=== PATIENT | female | born 1955 | race African-American/Black ===

== ENCOUNTER 2020-05-22 14:08 | Outpatient (REF) | payer MEDICARE, OTHER, SELFPAY | END 2020-05-22 14:09 | disposition home or self-care (01) | LOC: HO.LNP 14:08 | PROVIDERS: Visit Provider Hospitalist | DX: R31.9 Hematuria, unspecified (principal) | CPT/HCPCS: 87086 ==

== ENCOUNTER 2020-06-02 10:39 | Outpatient (REF) | payer MEDICARE, OTHER, SELFPAY ==
--- NOTE | 2020-06-02 10:46 | US_ITS ---
EXAMINATION: US RETROPERITONEAL COMPLETE (RENAL) CLINICAL INFORMATION: Gross hematuria. COMPARISON: None TECHNIQUE: Real-time imaging of the kidneys and bladder. FINDINGS: RIGHT KIDNEY: 9.4 x 5.6 x 5.5 cm (SAG x AP x TRV). The kidney is normal in size, contour, and echogenicity. Renal cortical thickness is normal. No calculi or focal parenchymal lesions. No hydronephrosis. LEFT KIDNEY: 8.7 x 3.7 x 4.5 cm (SAG x AP x TRV). The kidney is normal in size, contour, and echogenicity. Renal cortical thickness is normal. No calculi or focal parenchymal lesions. No hydronephrosis. BLADDER: Well distended and normal. Bilateral ureteral jets are demonstrated. Prevoid bladder volume is 200 mL. Postvoid bladder volume is 9.9 mL. US/US renal BI IMPRESSION: Unremarkable renal ultrasound. Tiny postvoid residual bladder volume.
--- NOTE | 2020-06-02 10:46 | US_ITS ---
EXAMINATION: US RETROPERITONEAL COMPLETE (RENAL) CLINICAL INFORMATION: Gross hematuria. COMPARISON: None TECHNIQUE: Real-time imaging of the kidneys and bladder. FINDINGS: RIGHT KIDNEY: 9.4 x 5.6 x 5.5 cm (SAG x AP x TRV). The kidney is normal in size, contour, and echogenicity. Renal cortical thickness is normal. No calculi or focal parenchymal lesions. No hydronephrosis. LEFT KIDNEY: 8.7 x 3.7 x 4.5 cm (SAG x AP x TRV). The kidney is normal in size, contour, and echogenicity. Renal cortical thickness is normal. No calculi or focal parenchymal lesions. No hydronephrosis. BLADDER: Well distended and normal. Bilateral ureteral jets are demonstrated. Prevoid bladder volume is 200 mL. Postvoid bladder volume is 9.9 mL. US/US bladder IMPRESSION: Unremarkable renal ultrasound. Tiny postvoid residual bladder volume.
== END 2020-06-02 10:40 | disposition home or self-care (01) ==
LOC: HO.HMGCX 10:39
PROVIDERS: PCP Internal Medicine; Referring Provider Hospitalist; Visit Provider Internal Medicine
DX: R31.0 Gross hematuria (principal)
CPT/HCPCS: 76770; 76775; 76857

== ENCOUNTER 2020-06-22 10:30 | Outpatient (REF) | payer MEDICARE, OTHER, SELFPAY ==
--- NOTE | 2020-06-22 | US_ITS ---
EXAMINATION: ULTRASOUND OF THE PELVIS CLINICAL INFORMATION: Pelvic pain. Gross hematuria.. COMPARISON: None. TECHNIQUE: Transabdominal and transvaginal pelvic ultrasound. A transvaginal study was performed in addition to the transabdominal study which did not yield an adequate examination of the uterus and ovaries due to superimposed distended gas-filled loops of bowel. FINDINGS: The uterus is normal in size and appearance, measuring 6.6 x 2.4 x 3.5 cm longitudinally, anteroposteriorly and transversely. The endometrial stripe thickness is normal, measuring 0.1 cm in thickness. There is a calcification at the posterior uterine body measuring 0.9 x 0.8 x 1.3 cm, likely a calcified fibroid. There is a separate hypoechoic myometrial fibroid at the anterior uterine body measuring 0.8 x 0.6 x 0.6 cm. The right ovary is not seen. Within the left adnexa there is a septated lobulated cyst measuring 2.3 x 1.7 x 1.7 cm. This is likely associated with the left ovary. There is no abnormal Doppler vascularity. No pelvic free fluid. US/US transvaginal IMPRESSION: 1. Small uterine fibroids. No endometrial thickening. 2. Septated left adnexal cyst measuring up to 2.3 cm.
--- NOTE | 2020-06-22 10:34 | US_ITS ---
EXAMINATION: ULTRASOUND OF THE PELVIS CLINICAL INFORMATION: Pelvic pain. Gross hematuria.. COMPARISON: None. TECHNIQUE: Transabdominal and transvaginal pelvic ultrasound. A transvaginal study was performed in addition to the transabdominal study which did not yield an adequate examination of the uterus and ovaries due to superimposed distended gas-filled loops of bowel. FINDINGS: The uterus is normal in size and appearance, measuring 6.6 x 2.4 x 3.5 cm longitudinally, anteroposteriorly and transversely. The endometrial stripe thickness is normal, measuring 0.1 cm in thickness. There is a calcification at the posterior uterine body measuring 0.9 x 0.8 x 1.3 cm, likely a calcified fibroid. There is a separate hypoechoic myometrial fibroid at the anterior uterine body measuring 0.8 x 0.6 x 0.6 cm. The right ovary is not seen. Within the left adnexa there is a septated lobulated cyst measuring 2.3 x 1.7 x 1.7 cm. This is likely associated with the left ovary. There is no abnormal Doppler vascularity. No pelvic free fluid. US/US pelvic complete IMPRESSION: 1. Small uterine fibroids. No endometrial thickening. 2. Septated left adnexal cyst measuring up to 2.3 cm.
== END 2020-06-22 10:31 | disposition home or self-care (01) ==
LOC: HO.HMGCX 10:30
PROVIDERS: PCP Internal Medicine; Visit Provider Internal Medicine
DX: R10.2 Pelvic and perineal pain (principal); R31.0 Gross hematuria
CPT/HCPCS: 76830; 76856

== ENCOUNTER 2020-08-28 10:34 | Outpatient (REF) | payer MEDICARE, OTHER, SELFPAY ==
[2020-08-28 14:03] LABS: Hematocrit 42.2 % (37-47); Hemoglobin 13.5 g/dl (12.0-16.0); Mean Corpuscular Hemoglobin 30.7 pg (27.0-33.0); Mean Corpuscular Volume 95.9 fL (80-98); Mean Platelet Volume 9.9 fL (9.4-12.3); Platelet Count 309 X10*3/uL (160-400); Red Cell Distribution Width 13.7 % (11.0-16.0); White Blood Count 3.8 X10*3/uL (4.8-10.8)
[2020-08-28 14:14] LABS: Glucose Urine UA NEG (NEG); Leukocyte Esterase Urine NEG (NEG); Nitrite Urine NEG (NEG); PH 5.5 (5.0-8.0); Specific Gravity - Urine 1.025 (1.005-1.025); Urine Blood TRACE (NEG); Urine Ketones NEG (NEG); Urine Protein NEG (NEG-TRACE)
[2020-08-28 14:21] LABS: Appearance Urine CLEAR; Color Urine YELLOW
[2020-08-28 14:30] LABS: RBC Urine 0-2 /HPF (0); Squamous Epithelial Cell Urine TRACE /LPF; WBC Urine 0-2 /HPF (0-4)
[2020-08-28 14:42] LABS: Alanine Aminotransferase 19 U/L (0-31); Albumin Level 4.5 g/dL (3.5-5.0); Alkaline Phosphatase 73 U/L (39-117); Anion Gap 15 (12-20); Aspartate Amino Transferase 24 U/L (5-31); Bilirubin Total 1.4 mg/dL (0.0-1.0); Blood Urea Nitrogen 13 mg/dL (9-16); Carbon Dioxide 26 mmol/L (22-29); Chloride 104 mmol/L (96-108); Cholesterol 208 mg/dL; Estimated Glomerular Filt Rate > 60; Glucose Fasting 76 mg/dL (60-99); HDL Cholesterol 73 mg/dL; LDL Cholesterol Calculated 121 mg/dl; Potassium 4.6 mmol/l (3.3-5.1); Sodium 140 mmol/L (135-145); Total Protein 7.3 g/dL (6.5-8.0); Triglycerides 74 mg/dL
[2020-08-28 14:47] LABS: TSH reflex Free T4 0.58 mIU/mL (0.32-4.0)
== END 2020-08-28 10:35 | disposition home or self-care (01) ==
LOC: HO.HMGCLDS 10:34
PROVIDERS: PCP Internal Medicine; Visit Provider Internal Medicine
DX: Z00.00 Encounter for general adult medical examination without abnormal findings (principal); R31.9 Hematuria, unspecified
CPT/HCPCS: 36415; 80053; 80061; 81001; 81003; 84443; 85027; 88142

== ENCOUNTER 2020-08-28 11:27 | Outpatient (REF) | payer MEDICARE, OTHER, SELFPAY | END 2020-08-28 11:28 | disposition home or self-care (01) | LOC: HO.LAB 11:27 | PROVIDERS: Visit Provider Internal Medicine | DX: Z13.89 Encounter for screening for other disorder (principal) | CPT/HCPCS: 88142 ==

== ENCOUNTER 2022-04-11 10:42 | Outpatient (REF) | payer MEDICARE, OTHER, SELFPAY ==
[2022-04-11 14:02] LABS: Appearance Urine Clear; Color Urine Yellow; Glucose Urine UA Negative (Negative); Leukocyte Esterase Urine Negative (Negative); Nitrite Urine Negative (Negative); Urine Blood Negative (Negative); Urine Ketones Negative (Negative); Urine Protein Negative (Neg-Trace)
[2022-04-11 14:24] LABS: MANUAL DIFF FLAG NO
[2022-04-11 14:25] LABS: Bacteria Urine None Seen (None Seen); Hyaline Casts Urine 0-2 /LPF (0-2); RBC Urine 0-2 /HPF (0-2); Squamous Epithelial Cell Urine 0-2 /HPF (0-2); WBC Urine 0-5 /HPF (0-5)
[2022-04-11 14:46] LABS: Basophils Percent Auto 1.1 % (0-2); Eosinophils Absolute Auto 0.4 X10*3/uL (0.0-0.4); Eosinophils Percent Auto 10.2 % (0-4); Hematocrit 42.2 % (37.0-47.0); Hemoglobin 13.8 g/dl (12.0-16.0); Lymphocytes Absolute Auto 1.8 X10*3/uL (1.2-4.9); Lymphocytes Percent Auto 49.1 % (20-40); Mean Corpuscular HGB Conc 32.7 g/dl (31.0-35.0); Mean Corpuscular Hemoglobin 31.1 pg (27.0-33.0); Monocytes Absolute Auto 0.4 X10*3/uL (0.1-1.2); Monocytes Percent Auto 11.5 % (2-11); Neutrophils Absolute Auto 1.1 x10*3/uL (2.0-8.3); Neutrophils Percent Auto 28.1 % (45-73); Platelet Count 345 X10*3/uL (160-400); Red Blood Count 4.44 X10*6/uL (4.20-5.50); Red Cell Distribution Width 13.5 % (11.0-16.0); White Blood Count 3.7 X10*3/uL (4.8-10.8)
[2022-04-11 14:51] LABS: Alanine Aminotransferase 17 U/L (0-31); Albumin Level 4.5 g/dL (3.5-5.0); Alkaline Phosphatase 68 U/L (39-117); Anion Gap 14 (12-20); Aspartate Amino Transferase 23 U/L (5-31); Bilirubin Total 1.3 mg/dL (0.0-1.0); Blood Urea Nitrogen 10 mg/dL (9-16); Calcium 9.5 mg/dL (8.4-10.2); Carbon Dioxide 26 mmol/L (22-29); Chloride 104 mmol/L (96-108); Cholesterol 217 mg/dL; Estimated Glomerular Filt Rate 59; Glucose Fasting 88 mg/dL (60-99); HDL Cholesterol 70 mg/dL; LDL Cholesterol Calculated 131 mg/dl; Potassium 4.6 mmol/L (3.3-5.1); Sodium 139 mmol/L (135-145); Total Protein 7.6 g/dL (6.5-8.0); Triglycerides 83 mg/dL
[2022-04-11 15:21] LABS: TSH reflex Free T4 0.93 uIU/mL (0.32-4.0)
[2022-04-11 15:52] LABS: Folate 14.3 ng/mL (> or = 4.0); Vitamin B12 883 pg/mL (200-900)
[2022-04-11 15:54] LABS: Vitamin D 25-OH Total 19.5 ng/mL (>30)
== END 2022-04-11 10:43 | disposition home or self-care (01) ==
LOC: HO.HMGCLDS 10:42
PROVIDERS: PCP Internal Medicine; Visit Provider Internal Medicine
DX: Z00.00 Encounter for general adult medical examination without abnormal findings (principal); E55.9 Vitamin D deficiency, unspecified
CPT/HCPCS: 36415; 80053; 80061; 81001; 82306; 82607; 82746; 84443; 85025; 87624; 88142

== ENCOUNTER 2022-04-11 16:05 | Outpatient (REF) | payer MEDICARE, OTHER, SELFPAY ==
[2022-04-19 00:57] LABS: HPV mRNA E6/E7 Detected (Not Detected)
== END 2022-04-11 16:06 | disposition home or self-care (01) ==
LOC: HO.LNP 16:05
PROVIDERS: Visit Provider Internal Medicine
DX: Z01.419 Encounter for gynecological examination (general) (routine) without abnormal findings (principal)
CPT/HCPCS: 87624; 88142

== ENCOUNTER 2022-06-18 15:29 | Outpatient (REF) | payer MEDICARE, OTHER, SELFPAY | END 2022-06-18 15:30 | disposition home or self-care (01) | LOC: HO.SH 15:29 | PROVIDERS: Visit Provider Internal Medicine | DX: Z01.118 Encounter for examination of ears and hearing with other abnormal findings (principal); H90.3 Sensorineural hearing loss, bilateral; H93.13 Tinnitus, bilateral | CPT/HCPCS: 92557; 92567; 92588 ==

== ENCOUNTER 2023-05-05 08:53 | Outpatient (AMB) | payer MEDICARE, OTHER, SELFPAY ==
[2023-05-05 09:02] VITALS: BP 106/66; PULSE 73; O2SAT 97; BMI 23.3
--- NOTE | 2023-05-05 09:02 | A.OFFPC_ITS ---
Vital Signs 05/05/23 09:02 Height 5 ft 7.5 in Weight 151 lb BMI 23.3 BP 106/66 Blood Pressure Location Lt brachial Position Sitting Pulse 73 Pulse Source Pulse Oximeter Pulse Oximetry (%) 97 Oxygen Delivery Method Room Air Intake Visit Reasons: PE Intake Note: Pt is here today for PE. Pt is due for pap. Allergies iodine Allergy (Unknown, Verified 05/05/23 09:08) unknown penicillin V Allergy (Unknown, Verified 05/05/23 09:08) cant breath soy Allergy (Unknown, Verified 05/05/23 09:08) scratchy throat eye swelling Sulfa (Sulfonamide Antibiotics) Allergy (Unknown, Verified 05/05/23 09:08) cant breath Medication List - Last Reconciled 05/05/23 by Yessy Mas MD albuterol sulfate 90 mcg/actuation (ProAir HFA) 2 puffs inhalation Q6H PRN cholecalciferol (vitamin D3) 50 mcg PO DAILY hydrocortisone 2.5% 1 appl topical BID PRN Tobacco use date assessed: 05/05/23 Fall risk assessment: No Falls in past year Last assessed Fall Risk: 05/05/23 Dental Screening Dental Screen Date: 05/05/23 Did you have a dental visit in the last 12 months?: Yes Did you have a dental problem in the last 6 months where you did not have access to dental care?: No Was dental information given to patient?: Patient has dentist HPI PE HPI Details Patient presents for physical. She has been under lot of stress related to her mother living with her. She has been seeing counselor for panic attacks. [facility] Medical History Annual physical exam Foot pain, right Hearing loss Panic attack Urinary incontinence Vasovagal episode Surgical History H/O colonoscopy No pertinent past surgical history Family History (Updated 05/05/23 @ 09:12 by ZAY Francis) Mother Hypertension Father Lung cancer Maternal Grandmother Colon cancer Social History Housing: House Alcohol intake: current Alcohol intake frequency: a few times a week Patient Tobacco Use Status: Never used Tobacco e-Cigarette/Vaping Use: Never Used Current occupational status: employed and retired Cognitive needs: No Hearing needs: No Vision needs: Yes Questionnaire PHQ-9 Over the last 2 weeks, how often have you been bothered by any of the following problems? 1. Little interest or pleasure in doing things: not at all 2. Feeling down, depressed, or hopeless: not at all 3. Trouble falling or staying asleep, or sleeping too much: several days 4. Feeling tired or having little energy: several days 5. Poor appetite or overeating: not at all 6. Feeling bad about yourself - or that you are a failure or have let yourself or your family down: not at all 7. Trouble concentrating on things, such as reading the newspaper or watching television: not at all 8. Moving or speaking so slowly that other people could have noticed. Or the opposite - being so fidgety or restless that you have been moving around a lot more than usual: not at all 9. Thoughts that you would be better off or of hurting yourself in some way: not at all Total score: 2 Depression Screening Interpretation: Negative Source: Developed by Drs. Beto Urrutia, Aiyana Quiroz, Donnie Echeverria and colleagues, with an educational liborio from [email or web address]. Thrive Questionnaire Date Thrive assessed: 05/05/23 I am a: Patient What is your living situation today?: I have a steady place to live Within the past 12 months, did the food you bought not last and you didn't have the money to get more?: Never true Within the past 12 months, did you worry whether your food would run out before you got money to buy more?: Never true Do you have trouble paying for medicines?: No Do you have trouble getting transportation to medical appointments?: No Do you have trouble paying your heating and electricity bill?: No Do you have trouble taking care of your child, family member or friend?: No Do you have trouble with day-to-day activities such as bathing, preparing meals, shopping, managing finances, etc.?: No Are you currently unemployed and looking for a job?: No Are you interested in more education?: No Please select the resources that you would like help with: None Currently or been in a relationship where the following occur: no concerns reported AUDIT C Alcohol Use Questionnaire (AUDIT-C) 1. How often do you have a drink containing alcohol?: 2-3 times a week 2. How many drinks containing alcohol do you have on a typical day when you are drinking?: 1 or 2 3. How often do you have six or more drinks on one occasion?: Never Total Score: 3 PRIYANKA-7 AMB Questionnaire PRIYANKA-7 Date PRIYANKA - 7 assessed: 05/05/23 Feeling nervous, anxious, or on edge: 0 = Not at all Not being able to stop or control worryin = Not at all Worrying too much about different things: 0 = Not at all Trouble relaxin = Not at all Being so restless that it is hard to sit still: 0 = Not at all Becoming easily annoyed or irritable: 0 = Not at all Feeling afraid as if something awful might happen: 0 = Not at all Total PRIYANKA-7 score (0-4 normal; 5-9 mild; 10-14 moderate; 15-21 severe): 0 Source: Developed by Drs. Beto Urrutia, Aiyana Quiroz, Donnie Echeverria and colleagues, with an educational liborio from [email or web address]. Review of Systems Const All systems reviewed & are unremarkable except as noted in HPI and below Reports no additional complaints Eyes Reports no additional complaints ENT Reports no additional complaints Card Reports no additional complaints Resp Reports no additional complaints GI Reports no additional complaints Reports no additional complaints Physical exam (Primary Care) Vital Signs: Last Vital Signs Pulse 73 05/05/23 09:02 BP 106/66 05/05/23 09:02 Pulse Ox 97 05/05/23 09:02 Oxygen Delivery Method Room Air 05/05/23 09:02 BMI result Body Mass Index 23.3 Tobacco/Smoking Status: Tobacco use Status Tobacco use date assessed 05/05/23 05/05/23 09:12 Patient Tobacco Use Status Never used Tobacco 05/05/23 09:12 e-Cigarette/Vaping Use Never Used 05/05/23 09:12 PHQ-9: PHQ-9 Score PHQ-9: Total score 2 05/05/23 09:15 Depression Screening Interpretation: Negative Thrive Assessment: Date of Thrive Assessment Date Thrive assessed 05/05/23 05/05/23 09:15 Currently or been in a relationship where the following occur: no concerns reported Const General: no acute distress HENMT Face and sinus: Yes normal facial exam Throat: Yes posterior oropharynx normal Neck Neck: Yes no lymphadenopathy and Yes supple Resp Effort & Inspection: normal respiratory effort Auscultation: clear to auscultation bilaterally Cardio Rhythm: regular rhythm Heart sounds: S1 normal heart sound present and S2 normal heart sound present GI Inspection: Yes normal to inspection Palpation (GI): Soft to palpation Percussion: Yes normal to percussion Auscultation: normal bowel sounds Speculum Exam - Vagina: vagina atrophic Speculum Exam - Cervix: normal appearance of the cervix Bimanual exam- vagina & uterus: normal bimanual exam Assessment and Plan Assessment & Plan (1) Annual physical exam: Code(s): Z00.00 - Encounter for general adult medical examination without abnormal findings Plan: well balanced diet, regular exercises, up to date with mammogram and colonoscopy (2) Panic attack: Code(s): F41.0 - Panic disorder [episodic paroxysmal anxiety] Plan: cont psychotherapy (3) Hyperlipidemia: Code(s): E78.5 - Hyperlipidemia, unspecified Plan: cont low cholesterol diet Orders: Orders Lipid Panel Today E78.5 - Hyperlipidemia, unspecified, F41.0 - Panic disorder [episodic paroxysmal anxiety], Z00.00 - Encounter for general adult medical examination without abnormal findings Comprehensive [place]. Panel Fast Today E78.5 - Hyperlipidemia, unspecified, F41.0 - Panic disorder [episodic paroxysmal anxiety], Z00.00 - Encounter for general adult medical examination without abnormal findings Complete Blood Count Auto Diff Today E78.5 - Hyperlipidemia, unspecified, F41.0 - Panic disorder [episodic paroxysmal anxiety], Z00.00 - Encounter for general adult medical examination without abnormal findings TSH reflex Free T4 Today E78.5 - Hyperlipidemia, unspecified, F41.0 - Panic disorder [episodic paroxysmal anxiety], Z00.00 - Encounter for general adult medical examination without abnormal findings Pap Smear Today Z00.00 - Encounter for general adult medical examination without abnormal findings Medications: New triamcinolone acetonide 0.025% 1 appl topical DAILY 80 grams 1RF Refilled cholecalciferol (vitamin D3) 50 mcg PO DAILY 90 tabs 3RF Coding Level of Care Code Est Pt Prev Care >65y(93562) Diagnoses Annual physical exam Z00.00 Panic attack F41.0 Hyperlipidemia E78.5
== END 2023-05-05 10:17 | disposition home or self-care (01) ==
PROVIDERS: PCP Internal Medicine; Visit Provider Internal Medicine
DX: Z00.00 Encounter for general adult medical examination without abnormal findings (principal); F41.0 Panic disorder [episodic paroxysmal anxiety]; E78.5 Hyperlipidemia, unspecified
CPT/HCPCS: 99397

== ENCOUNTER 2023-05-05 10:17 | Outpatient (REF) | payer MEDICARE, OTHER, SELFPAY ==
[2023-05-05 13:25] LABS: MANUAL DIFF FLAG NO
[2023-05-05 13:41] LABS: Basophils Absolute Auto 0.1 X10*3/uL (0.0-0.2); Basophils Percent Auto 1.3 % (0-2); Eosinophils Absolute Auto 0.3 X10*3/uL (0.0-0.4); Eosinophils Percent Auto 8.1 % (0-4); Hematocrit 41.9 % (37.0-47.0); Hemoglobin 13.6 g/dl (12.0-16.0); Imm Gran Abs Auto 0.01 X10*3/uL (0.00-0.03); Imm Gran Pct Auto 0.3 % (0.0-0.4); Lymphocytes Absolute Auto 1.6 X10*3/uL (1.2-4.9); Lymphocytes Percent Auto 40.4 % (20-40); Mean Corpuscular HGB Conc 32.5 g/dl (31.0-35.0); Mean Corpuscular Hemoglobin 31.1 pg (27.0-33.0); Mean Corpuscular Volume 95.7 fL (80.0-98.0); Mean Platelet Volume 9.9 fL (9.4-12.3); Monocytes Absolute Auto 0.6 X10*3/uL (0.1-1.2); Monocytes Percent Auto 14.7 % (2-11); Neutrophils Absolute Auto 1.4 x10*3/uL (2.0-8.3); Neutrophils Percent Auto 35.2 % (45-73); Platelet Count 295 X10*3/uL (160-400); Red Blood Count 4.38 X10*6/uL (4.20-5.50); White Blood Count 3.9 X10*3/uL (4.8-10.8)
[2023-05-05 14:22] LABS: Alanine Aminotransferase 14 U/L (0-31); Albumin Level 4.4 g/dL (3.5-5.0); Alkaline Phosphatase 62 U/L (39-117); Anion Gap 14 (12-20); Aspartate Amino Transferase 21 U/L (5-31); Bilirubin Total 1.2 mg/dL (0.0-1.0); Blood Urea Nitrogen 11 mg/dL (9-16); Carbon Dioxide 25 mmol/L (22-29); Chloride 107 mmol/L (96-108); Cholesterol 188 mg/dL (<200); Estimated Glomerular Filt Rate > 60; Glucose Fasting 84 mg/dL (60-99); HDL Cholesterol 72 mg/dL (>40); LDL Cholesterol Calculated 99 mg/dL (<100); Potassium 4.7 mmol/L (3.3-5.1); Sodium 141 mmol/L (135-145); TSH reflex Free T4 0.94 uIU/mL (0.32-4.0); Total Protein 7.5 g/dL (6.5-8.0); Triglycerides 85 mg/dL (<150); Vitamin D 25-OH Total 67.1 ng/mL (>30)
== END 2023-05-05 10:18 | disposition home or self-care (01) ==
LOC: HO.HMGCLDS 10:17
PROVIDERS: PCP Internal Medicine; Visit Provider Internal Medicine
DX: Z00.00 Encounter for general adult medical examination without abnormal findings (principal); Z12.4 Encounter for screening for malignant neoplasm of cervix; Z11.51 Encounter for screening for human papillomavirus (HPV); F41.0 Panic disorder [episodic paroxysmal anxiety]; E78.5 Hyperlipidemia, unspecified; E55.9 Vitamin D deficiency, unspecified
CPT/HCPCS: 36415; 80053; 80061; 82306; 84443; 85025; 87624; 88142

== ENCOUNTER 2023-05-05 10:20 | Outpatient (REF) | payer MEDICARE, OTHER, SELFPAY ==
[2023-05-08 04:04] LABS: HPV mRNA E6/E7 Not Detected (Not Detected)
== END 2023-05-05 10:21 | disposition home or self-care (01) ==
LOC: HO.LNP 10:20
PROVIDERS: Visit Provider Internal Medicine
DX: Z13.89 Encounter for screening for other disorder (principal)
CPT/HCPCS: 88142

== ENCOUNTER 2023-07-18 13:16 | Outpatient (REF) | payer MEDICARE, OTHER, SELFPAY ==
[2023-07-18 18:44] LABS: Appearance Urine Cloudy; Color Urine Yellow; Glucose Urine UA Negative (Negative); Leukocyte Esterase Urine Large (3+) (Negative); Nitrite Urine Negative (Negative); PH 5.5 (5.0-9.0); Specific Gravity - Urine 1.015 (1.005-1.025); UMIC TRIGGER UACC YES; Urine Blood Moderate (2+) (Negative); Urine Ketones Negative (Negative); Urine Protein Negative (Neg-Trace)
[2023-07-18 19:02] LABS: Bacteria Urine 3+ (None Seen); Hyaline Casts Urine 0-2 /LPF (0-2); Squamous Epithelial Cell Urine 0-2 /HPF (0-2); UACC Culture Trigger YES; WBC Urine >50 /HPF (0-5)
== END 2023-07-18 13:17 | disposition home or self-care (01) ==
LOC: HO.HMGCLDS 13:16
PROVIDERS: PCP Internal Medicine; Visit Provider Internal Medicine
DX: R30.0 Dysuria (principal)
CPT/HCPCS: 81001; 87086; 87088; 87186

== ENCOUNTER 2023-11-18 12:39 | Outpatient (AMB) | payer MEDICARE, OTHER, SELFPAY ==
[2023-11-18 13:08] VITALS: BP 116/74; PULSE 69; O2SAT 97; BMI 23.5
--- NOTE | 2023-11-18 13:08 | MHC.PC.OV ---
Vital Signs 11/18/23 13:08 Height 5 ft 7.5 in Weight 152 lb BMI 23.5 BP 116/74 Blood Pressure Location Lt brachial Position Sitting Pulse 69 Pulse Source Pulse Oximeter Pulse Oximetry (%) 97 Oxygen Delivery Method Room Air Intake Visit Reasons: on going bleeding rectal area Intake Note: Pt is here today for a sick visit. Pt c/o bleeding in her anus. Pt states that it has been going on for a year. Pt states that she was seen in a walk in for this. Allergies iodine Allergy (Unknown, Verified 11/18/23 13:10) unknown penicillin V Allergy (Unknown, Verified 11/18/23 13:10) cant breath soy Allergy (Unknown, Verified 11/18/23 13:10) scratchy throat eye swelling Sulfa (Sulfonamide Antibiotics) Allergy (Unknown, Verified 11/18/23 13:10) cant breath Medication List - Last Reconciled 11/18/23 by Yessy Mas MD albuterol sulfate 90 mcg/actuation (ProAir HFA) 2 puffs inhalation Q6H PRN cholecalciferol (vitamin D3) 50 mcg PO DAILY hydrocortisone 2.5% 1 appl topical BID PRN triamcinolone acetonide 0.025% 1 appl topical DAILY Tobacco use date assessed: 11/18/23 Fall risk assessment: No Falls in past year Last assessed Fall Risk: 11/18/23 Dental Screening Dental Screen Date: 11/18/23 Did you have a dental visit in the last 12 months?: Yes Did you have a dental problem in the last 6 months where you did not have access to dental care?: No Was dental information given to patient?: Patient has dentist HPI on going bleeding rectal area HPI Details Pt c/o recurrent rectal bleeding after BM and after exercise for 1 year on and off at least once or twice a week. Patient denies rectal pain abdominal pain change in bowel habits nausea vomiting. She had negative colonoscopy in 2018 but has a family history of colon cancer in her grandmother. [facility] Medical History Foot pain, right Vasovagal episode Hearing loss Panic attack Annual physical exam Urinary incontinence Surgical History H/O colonoscopy No pertinent past surgical history Family History Mother Hypertension Father Lung cancer Maternal Grandmother Colon cancer Social History Housing: House Alcohol intake: current Alcohol intake frequency: a few times a week Patient Tobacco Use Status: Never used Tobacco e-Cigarette/Vaping Use: Never Used service: No Current occupational status: employed and retired Cognitive needs: No Hearing needs: No Vision needs: Yes Questionnaire PHQ-9 Over the last 2 weeks, how often have you been bothered by any of the following problems? 1. Little interest or pleasure in doing things: not at all 2. Feeling down, depressed, or hopeless: not at all 3. Trouble falling or staying asleep, or sleeping too much: several days 4. Feeling tired or having little energy: several days 5. Poor appetite or overeating: not at all 6. Feeling bad about yourself - or that you are a failure or have let yourself or your family down: not at all 7. Trouble concentrating on things, such as reading the newspaper or watching television: not at all 8. Moving or speaking so slowly that other people could have noticed. Or the opposite - being so fidgety or restless that you have been moving around a lot more than usual: not at all 9. Thoughts that you would be better off or of hurting yourself in some way: not at all Total score: 2 Depression Screening Interpretation: Negative Depression Screening Done: Yes Source: Developed by Drs. Beto Urrutia, Aiyana Quiroz, Donnie Echeverria and colleagues, with an educational liborio from [employer]. Thrive Questionnaire Date Thrive assessed: 11/18/23 I am a: Patient What is your living situation today?: I have a steady place to live Within the past 12 months, did the food you bought not last and you didn't have the money to get more?: Never true Within the past 12 months, did you worry whether your food would run out before you got money to buy more?: Never true Do you have trouble paying for medicines?: No Do you have trouble getting transportation to medical appointments?: No Do you have trouble paying your heating and electricity bill?: No Do you have trouble taking care of your child, family member or friend?: No Do you have trouble with day-to-day activities such as bathing, preparing meals, shopping, managing finances, etc.?: No Are you currently unemployed and looking for a job?: No Are you interested in more education?: No Please select the resources that you would like help with: None THRIVE Score: 0 AUDIT C Alcohol Use Questionnaire (AUDIT-C) 1. How often do you have a drink containing alcohol?: 2-4 times a month 2. How many drinks containing alcohol do you have on a typical day when you are drinking?: 1 or 2 3. How often do you have six or more drinks on one occasion?: Never Total Score: 2 PRIYANKA-7 AMB Questionnaire PRIYANKA-7 Date PRIYANKA - 7 assessed: 11/18/23 Feeling nervous, anxious, or on edge: 0 = Not at all Not being able to stop or control worryin = Not at all Worrying too much about different things: 0 = Not at all Trouble relaxin = Not at all Being so restless that it is hard to sit still: 0 = Not at all Becoming easily annoyed or irritable: 0 = Not at all Feeling afraid as if something awful might happen: 0 = Not at all Total PRIYANKA-7 score (0-4 normal; 5-9 mild; 10-14 moderate; 15-21 severe): 0 Source: Developed by Drs. Beto Urrutia, Aiyana Quiroz, Donnie Echeverria and colleagues, with an educational liborio from [employer]. Review of Systems Const All systems reviewed & are unremarkable except as noted in HPI and below Eyes Reports no additional complaints ENT Reports no additional complaints Card Reports no additional complaints Resp Reports no additional complaints GI Reports no additional complaints Physical exam (Primary Care) Vital Signs: Last Vital Signs Pulse 69 11/18/23 13:08 BP 116/74 11/18/23 13:08 Pulse Ox 97 11/18/23 13:08 Oxygen Delivery Method Room Air 11/18/23 13:08 BMI result Body Mass Index 23.5 Tobacco/Smoking Status: Tobacco use Status Tobacco use date assessed 11/18/23 11/18/23 13:14 Patient Tobacco Use Status Never used Tobacco 11/18/23 13:14 e-Cigarette/Vaping Use Never Used 11/18/23 13:14 PHQ-9: PHQ-9 Score PHQ-9: Total score 2 11/18/23 13:14 Depression Screening Interpretation: Negative Thrive Assessment: Date of Thrive Assessment Date Thrive assessed 11/18/23 11/18/23 13:14 Const General: no acute distress Neck Neck: Yes supple Resp Effort & Inspection: normal respiratory effort Auscultation: clear to auscultation bilaterally Cardio Rhythm: regular rhythm Heart sounds: S1 normal heart sound present and S2 normal heart sound present GI Inspection: Yes normal to inspection Palpation (GI): Soft to palpation Percussion: Yes normal to percussion Auscultation: normal bowel sounds Rectal Exam - Female: deferred Assessment and Plan Assessment & Plan (1) Rectal bleed: Code(s): K62.5 - Hemorrhage of anus and rectum Plan: For recurrent intermittent hematochezia patient will be referred to GI for colonoscopy. She was advised to take stool softeners daily and increase fiber intake. Check CBC today (2) FHx: colon cancer: Comment: Grandmother Code(s): Z80.0 - Family history of malignant neoplasm of digestive organs Plan: Referred to GI for colonoscopy Orders: Orders Complete Blood Count no Diff Today K62.5 - Hemorrhage of anus and rectum Referrals Gastroenterology Referral K62.5 - Hemorrhage of anus and rectum, Z00.00 - Encounter for general adult medical examination without abnormal findings, Z80.0 - Family history of malignant neoplasm of digestive organs Coding Level of Care Code Est Pt Level 3 (67947) Diagnoses Rectal bleed K62.5 FHx: colon cancer Z80.0
== END 2023-11-18 14:28 | disposition home or self-care (01) ==
PROVIDERS: PCP Internal Medicine; Visit Provider Internal Medicine
DX: K62.5 Hemorrhage of anus and rectum (principal); Z80.0 Family history of malignant neoplasm of digestive organs
CPT/HCPCS: 99213

== ENCOUNTER 2023-11-18 13:55 | Outpatient (REF) | payer MEDICARE, OTHER, SELFPAY ==
[2023-11-18 16:19] LABS: Hematocrit 40.4 % (37.0-47.0); Hemoglobin 13.5 g/dl (12.0-16.0); Mean Corpuscular HGB Conc 33.4 g/dl (31.0-35.0); Mean Corpuscular Hemoglobin 31.4 pg (27.0-33.0); Mean Platelet Volume 9.7 fL (9.4-12.3); Platelet Count 305 X10*3/uL (160-400); Red Cell Distribution Width 13.5 % (11.0-16.0); White Blood Count 4.3 X10*3/uL (4.8-10.8)
== END 2023-11-18 13:56 | disposition home or self-care (01) ==
LOC: HO.HMGCLDS 13:55
PROVIDERS: PCP Internal Medicine; Visit Provider Internal Medicine
DX: K62.5 Hemorrhage of anus and rectum (principal)
CPT/HCPCS: 36415; 85027

== ENCOUNTER 2023-12-22 08:59 | Outpatient (AMB) | payer MEDICARE, OTHER, SELFPAY ==
--- NOTE | 2023-12-22 09:03 | A.OFFVIS_ITS ---
Vital Signs 12/22/23 09:04 Height 5 ft 7.5 in Weight 149 lb 14.629 oz BMI 23.1 BP 116/79 Blood Pressure Location Lt brachial Position Sitting Pulse 98 Intake Visit Reasons: GI Bleed Intake Note: Cassie presents in the office as a new patient for a GI bleed. CC: She states that she is here today for a GI bleed - she states she sometimes has diarrhea. No pains in her stomach. She states its not often when she bleeds but when she has an explosive bowel movement or when she is walking she will have the blood. 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 Reports notices it after a diarrheal bowel movement or after physical exertion such as a long walk. Notices it mostly on TP on wiping. No changes in appetite. Weight is stable. Mat grandmother had colon cancer in her 50s. Pt's last colo was in 2018 (Dr Hart) - was told a 10 year recall. [facility] Medical History Foot pain, right Vasovagal episode Hearing loss Panic attack Annual physical exam Urinary incontinence Surgical History H/O colonoscopy No pertinent past surgical history Family History Mother Hypertension Father Lung cancer Maternal Grandmother Colon cancer Social History Housing: House Alcohol intake: current Alcohol intake frequency: a few times a week Patient Tobacco Use Status: Never used Tobacco e-Cigarette/Vaping Use: Never Used service: No Current occupational status: employed and retired Cognitive needs: No Hearing needs: No Vision needs: Yes Review of Systems Const All systems reviewed & are unremarkable except as noted in HPI and below Physical Exam Vital Signs: Last Vital Signs Pulse 98 12/22/23 09:04 BP 116/79 12/22/23 09:04 BMI result Body Mass Index 23.1 Gen appear: NAD HEENT: Nonicteric Abd: soft, nontender Rectal: Codie Lopes MA present as shutdown coordinator. One small ext hemorrhoid, medium- large int hemorrhoids. Assessment & Plan Assessment & Plan (1) Internal hemorrhoid: Code(s): K64.8 - Other hemorrhoids Category: Medical (2) Rectal bleed: Code(s): K62.5 - Hemorrhage of anus and rectum Category: Medical (3) FHx: colon cancer: Comment: Grandmother Code(s): Z80.0 - Family history of malignant neoplasm of digestive organs Category: Medical Plan Likely 2/2 bleeding int hemorrhoids. No red flags to warrant emergent endoscopy at this time. No FIRST degree relatives with CRC. Plan: - Add fiber supplementation - Avoid constipation. Can take Senna PRN - Sitz baths - Topical hydrocort cream to be applied [place] x 7-10 days. - If has persistent bleeding despite above can review flex sig vs colo Follow up in 3 months Medications: New hydrocortisone 1% Apply at bedtime 1 appl [place] DAILY 10 days 28.4 grams 0RF K64.8 - Other hemorrhoids Discontinued hydrocortisone 2.5% Discontinued Reason: Doctor's Order 1 appl topical BID PRN 30 grams 3RF skin irritation Patient Instructions: - Fiber supplement - Avoid constipation - can take senna if needed - Sitz baths -- no need to add bath salts or oils - Steroid cream to be used 7-10 days at bedtime Coding Level of Care Code New Pt Level 4 (65499) Diagnoses Internal hemorrhoid K64.8 Rectal bleed K62.5 FHx: colon cancer Z80.0
[2023-12-22 09:04] VITALS: BP 116/79; PULSE 98; BMI 23.1
== END 2023-12-22 09:48 | disposition home or self-care (01) ==
PROVIDERS: PCP Internal Medicine; Visit Provider Internal Medicine
DX: K64.8 Other hemorrhoids (principal); K62.5 Hemorrhage of anus and rectum; Z80.0 Family history of malignant neoplasm of digestive organs
CPT/HCPCS: 99204

== ENCOUNTER → 2023-12-22 08:59 | Outpatient (BNVA) | payer MEDICARE, OTHER, SELFPAY | PROVIDERS: PCP Internal Medicine; Visit Provider Internal Medicine | DX: K62.5 Hemorrhage of anus and rectum (principal); K64.8 Other hemorrhoids; Z80.0 Family history of malignant neoplasm of digestive organs | CPT/HCPCS: 99202 ==

== ENCOUNTER 2024-05-17 08:27 | Outpatient (REF) | payer MEDICARE, OTHER, SELFPAY ==
[2024-05-17 13:12] LABS: Basophils Absolute Auto 0.1 X10*3/uL (0.0-0.2); Basophils Percent Auto 1.7 % (0-2); Eosinophils Absolute Auto 0.4 X10*3/uL (0.0-0.4); Eosinophils Percent Auto 10.3 % (0-4); Hematocrit 43.1 % (37.0-47.0); Hemoglobin 14.1 g/dl (12.0-16.0); Lymphocytes Absolute Auto 1.7 X10*3/uL (1.2-4.9); Lymphocytes Percent Auto 47.3 % (20-40); MANUAL DIFF FLAG SCAN; Mean Corpuscular HGB Conc 32.7 g/dl (31.0-35.0); Mean Corpuscular Hemoglobin 31.3 pg (27.0-33.0); Mean Corpuscular Volume 95.6 fL (80.0-98.0); Mean Platelet Volume 9.6 fL (9.4-12.3); Monocytes Absolute Auto 0.5 X10*3/uL (0.1-1.2); Monocytes Percent Auto 14.5 % (2-11); Neutrophils Absolute Auto 0.9 x10*3/uL (2.0-8.3); Neutrophils Percent Auto 26.2 % (45-73); Platelet Count 321 X10*3/uL (160-400); Red Blood Count 4.51 X10*6/uL (4.20-5.50); Red Cell Distribution Width 13.8 % (11.0-16.0); SCAN SMEAR FLAG 1; White Blood Count 3.5 X10*3/uL (4.8-10.8)
[2024-05-17 13:27] LABS: Alanine Aminotransferase 18 U/L (0-31); Albumin Level 4.3 g/dL (3.5-5.0); Alkaline Phosphatase 67 U/L (39-117); Anion Gap 12 (12-20); Aspartate Amino Transferase 22 U/L (5-31); Blood Urea Nitrogen 16 mg/dL (9-16); Calcium 9.7 mg/dL (8.4-10.2); Carbon Dioxide 27 mmol/L (22-29); Chloride 105 mmol/L (96-108); Cholesterol 206 mg/dL (<200); Estimated Glomerular Filt Rate 58; Glucose Fasting 78 mg/dL (60-99); HDL Cholesterol 70 mg/dL (>40); LDL Cholesterol Calculated 119 mg/dL (<100); Potassium 4.5 mmol/L (3.3-5.1); Sodium 139 mmol/L (135-145); Total Protein 7.4 g/dL (6.5-8.0); Triglycerides 86 mg/dL (<150)
[2024-05-17 13:35] LABS: SLIDE REVIEW VERIFIED
[2024-05-17 13:46] LABS: TSH reflex Free T4 1.03 uIU/mL (0.32-4.0)
[2024-05-17 13:55] LABS: Appearance Urine Clear; Color Urine Yellow; Glucose Urine UA Negative (Negative); Leukocyte Esterase Urine Negative (Negative); Nitrite Urine Negative (Negative); Urine Blood Negative (Negative); Urine Ketones Negative (Negative); Urine Protein Negative (Neg-Trace)
[2024-05-17 14:02] LABS: Bacteria Urine None Seen (None Seen); Hyaline Casts Urine 0-2 /LPF (0-2); RBC Urine 0-2 /HPF (0-2); Squamous Epithelial Cell Urine 0-2 /HPF (0-2); WBC Urine 0-5 /HPF (0-5)
== END 2024-05-17 08:28 | disposition home or self-care (01) ==
LOC: HO.LAB 08:27
PROVIDERS: PCP Internal Medicine; Visit Provider Internal Medicine
DX: Z13.89 Encounter for screening for other disorder (principal)
CPT/HCPCS: 36415; 80053; 80061; 81001; 84443; 85025; 96127; 99397

== ENCOUNTER 2024-05-17 08:27 | Outpatient (AMB) | payer MEDICARE, OTHER, SELFPAY ==
[2024-05-17 08:30] VITALS: BP 108/68; PULSE 76; O2SAT 99; BMI 23.1
--- NOTE | 2024-05-17 08:30 | MHC.PC.OV ---
Vital Signs 05/17/24 08:30 Height 5 ft 7.5 in Weight 150 lb BMI 23.1 BP 108/68 Blood Pressure Location Rt brachial Position Sitting Pulse 76 Pulse Source Pulse Oximeter Pulse Oximetry (%) 99 Oxygen Delivery Method Room Air Intake Visit Reasons: PE Intake Note: Pt is here today for PE. Allergies iodine Allergy (Unknown, Verified 05/17/24 08:36) unknown penicillin V Allergy (Unknown, Verified 05/17/24 08:36) cant breath soy Allergy (Unknown, Verified 05/17/24 08:36) scratchy throat eye swelling Sulfa (Sulfonamide Antibiotics) Allergy (Unknown, Verified 05/17/24 08:36) cant breath Medication List - Last Reconciled 05/17/24 by Yessy Mas MD albuterol sulfate 90 mcg/actuation (ProAir HFA) 2 puffs inhalation Q6H PRN cholecalciferol (vitamin D3) 50 mcg PO DAILY hydrocortisone 1% 1 appl MS DAILY 10 days triamcinolone acetonide 0.025% 1 appl topical DAILY Tobacco use date assessed: 05/17/24 Fall risk assessment: No Falls in past year Last assessed Fall Risk: 05/17/24 Dental Screening Dental Screen Date: 05/17/24 Did you have a dental visit in the last 12 months?: Yes Did you have a dental problem in the last 6 months where you did not have access to dental care?: No HPI PE HPI Details Patient presents for physical. 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 Patient denies depression or anxiety and has been looking for a counselor. Rectal bleeding resolved after patient used hemorrhoid treatment. She will schedule follow-up with a assistant dean of students. Patient complains of urinary incontinence and increase frequency at night but denies dysuria or hematuria PFSH Medical History Foot pain, right Vasovagal episode Hearing loss Panic attack Annual physical exam Urinary incontinence Surgical History H/O colonoscopy No pertinent past surgical history Family History Mother Hypertension Father Lung cancer Maternal Grandmother Colon cancer Social History Housing: House Alcohol intake: current Alcohol intake frequency: a few times a week Patient Tobacco Use Status: Never used Tobacco e-Cigarette/Vaping Use: Never Used service: No Current occupational status: retired Cognitive needs: No Hearing needs: No Vision needs: Yes Questionnaire PHQ-9 Over the last 2 weeks, how often have you been bothered by any of the following problems? 1. Little interest or pleasure in doing things: not at all 2. Feeling down, depressed, or hopeless: not at all 3. Trouble falling or staying asleep, or sleeping too much: several days 4. Feeling tired or having little energy: not at all 5. Poor appetite or overeating: not at all 6. Feeling bad about yourself - or that you are a failure or have let yourself or your family down: not at all 7. Trouble concentrating on things, such as reading the newspaper or watching television: not at all 8. Moving or speaking so slowly that other people could have noticed. Or the opposite - being so fidgety or restless that you have been moving around a lot more than usual: not at all 9. Thoughts that you would be better off or of hurting yourself in some way: not at all Total score: 1 Depression Screening Interpretation: Negative Depression Screening Done: Yes 92542 - PHQ-9 Billing: Yes Source: Developed by Drs. Beto Urrutia, Aiyana Quiroz, Donnie Echeverria and colleagues, with an educational liborio from [employer]. Thrive Questionnaire Date Thrive assessed: 05/17/24 I am a: Patient What is your living situation today?: I have a steady place to live Within the past 12 months, did the food you bought not last and you didn't have the money to get more?: Never true Within the past 12 months, did you worry whether your food would run out before you got money to buy more?: Never true Do you have trouble paying for medicines?: No Do you have trouble getting transportation to medical appointments?: No Do you have trouble paying your heating and electricity bill?: No Do you have trouble taking care of your child, family member or friend?: No Do you have trouble with day-to-day activities such as bathing, preparing meals, shopping, managing finances, etc.?: No Are you currently unemployed and looking for a job?: No Are you interested in more education?: No Please select the resources that you would like help with: None Currently or been in a relationship where the following occur: No concerns reported THRIVE Score: 0 AUDIT C Alcohol Use Questionnaire (AUDIT-C) 1. How often do you have a drink containing alcohol?: 2-4 times a month 2. How many drinks containing alcohol do you have on a typical day when you are drinking?: 1 or 2 3. How often do you have six or more drinks on one occasion?: Never Total Score: 2 PRIYANKA-7 AMB Questionnaire PRIYANKA-7 Date PRIYANKA - 7 assessed: 05/17/24 Feeling nervous, anxious, or on edge: 1 = Several days Not being able to stop or control worryin = Not at all Worrying too much about different things: 0 = Not at all Trouble relaxin = Not at all Being so restless that it is hard to sit still: 0 = Not at all Becoming easily annoyed or irritable: 1 = Several days Feeling afraid as if something awful might happen: 0 = Not at all Total PRIYANKA-7 score (0-4 normal; 5-9 mild; 10-14 moderate; 15-21 severe): 2 Source: Developed by Drs. Beto Urrutia, Aiyana Quiroz, Donnie Echeverria and colleagues, with an educational liborio from [employer]. PRIYANKA-7 Assessment Billing PRIYANKA-7 Assessment Tool: PRIYANKA-7 Assessment 85824 Review of Systems Const All systems reviewed & are unremarkable except as noted in HPI and below Eyes Reports no additional complaints ENT Reports no additional complaints Card Reports no additional complaints Resp Reports no additional complaints GI Reports no additional complaints Reports no additional complaints Physical exam (Primary Care) Vital Signs: Last Vital Signs Pulse 76 05/17/24 08:30 BP 108/68 05/17/24 08:30 Pulse Ox 99 05/17/24 08:30 Oxygen Delivery Method Room Air 05/17/24 08:30 BMI result Body Mass Index 23.1 Tobacco/Smoking Status: Tobacco use Status Tobacco use date assessed 05/17/24 05/17/24 08:38 Patient Tobacco Use Status Never used Tobacco 05/17/24 08:38 e-Cigarette/Vaping Use Never Used 05/17/24 08:32 PHQ-9: PHQ-9 Score PHQ-9: Total score 1 05/17/24 08:40 Depression Screening Interpretation: Negative Thrive Assessment: Date of Thrive Assessment Date Thrive assessed 05/17/24 05/17/24 08:38 Currently or been in a relationship where the following occur: No concerns reported Const General: no acute distress HENMT Head: Yes normal to inspection Ears: hearing grossly normal bilaterally General nose exam: Normal external nose present Face and sinus: Yes normal facial exam Mouth: Normal oral and palatal mucosa present Throat: Yes posterior oropharynx normal Eyes General: appearance normal, both eyes and all related structures Neck Neck: Yes no lymphadenopathy and Yes supple Resp Effort & Inspection: normal respiratory effort Auscultation: clear to auscultation bilaterally Cardio Rhythm: regular rhythm Heart sounds: S1 normal heart sound present and S2 normal heart sound present GI Inspection: Yes normal to inspection Palpation (GI): Soft to palpation Percussion: Yes normal to percussion Auscultation: normal bowel sounds External Female Exam: normal external appearance Speculum Exam - Vagina: normal appearance of the vagina Bimanual exam- vagina & uterus: normal bimanual exam Coding Level of Care Code Est Pt Prev Care >65y(03677) Diagnoses Annual physical exam Z00. Hyperlipidemia E78.5 Additional Codes PRIYANKA-7 Assessment Billing - PRIYANKA-7 Assessment Tool: PRIYANKA-7 Assessment 16220 ([id number]) Assessment & Plan Assessment & Plan (1) Annual physical exam: Code(s): Z00.00 - Encounter for general adult medical examination without abnormal findings Category: Medical Plan: Well-balanced diet regular physical activity discussed with the patient. she is up-to-date with mammogram at [facility]. Pap smear was done today. Patient will follow-up with GI for a history of rectal bleeding but she is not due for colonoscopy until 2027 unless advised by GI. For urinary incontinence patient will try estradiol vaginal cream applied to urethra. For insomnia sleep hygiene and stress management discussed with the patient (2) Hyperlipidemia: Code(s): E78.5 - Hyperlipidemia, unspecified Category: Medical Plan: Continue low-cholesterol diet Orders: Orders Comprehensive [place]. Panel Fast Today E78.5 - Hyperlipidemia, unspecified, Z00.00 - Encounter for general adult medical examination without abnormal findings UA w Microscopic Today E78.5 - Hyperlipidemia, unspecified, Z00.00 - Encounter for general adult medical examination without abnormal findings Complete Blood Count Auto Diff Today E78.5 - Hyperlipidemia, unspecified, Z00.00 - Encounter for general adult medical examination without abnormal findings Lipid Panel Today E78.5 - Hyperlipidemia, unspecified, Z00.00 - Encounter for general adult medical examination without abnormal findings TSH reflex Free T4 Today E78.5 - Hyperlipidemia, unspecified, Z00.00 - Encounter for general adult medical examination without abnormal findings PAP + HPV E6/E7 rfx 18/45 Today Z00.00 - Encounter for general adult medical examination without abnormal findings Medications: New estradiol 0.01%(0.1mg/gram) apply pea size to urethra 42.5 grams 4RF
== END 2024-05-17 09:26 | disposition home or self-care (01) ==
PROVIDERS: PCP Internal Medicine; Visit Provider Internal Medicine
DX: Z00.00 Encounter for general adult medical examination without abnormal findings (principal); E78.5 Hyperlipidemia, unspecified

== ENCOUNTER 2024-05-17 09:26 | Outpatient (REF) | payer MEDICARE, OTHER, SELFPAY ==
[2024-05-20 14:23] LABS: HPV mRNA E6/E7 Not Detected (Not Detected)
== END 2024-05-17 09:27 | disposition home or self-care (01) ==
LOC: HO.HMGCLDS 09:26
PROVIDERS: PCP Internal Medicine; Visit Provider Internal Medicine
DX: Z00.00 Encounter for general adult medical examination without abnormal findings (principal); E78.5 Hyperlipidemia, unspecified
CPT/HCPCS: 36415; 80053; 80061; 81001; 84443; 85025; 87624; 88175; 96127; 99397

== ENCOUNTER 2024-07-23 08:31 | Outpatient (REF) | payer MEDICARE, OTHER, SELFPAY | END 2024-07-23 08:32 | disposition home or self-care (01) | LOC: HO.SH 08:31 | PROVIDERS: Visit Provider Internal Medicine | DX: Z01.118 Encounter for examination of ears and hearing with other abnormal findings (principal); H90.3 Sensorineural hearing loss, bilateral | CPT/HCPCS: 92552; 92556 ==

== ENCOUNTER 2025-04-01 11:55 | Outpatient (AMB) | payer MEDICARE, OTHER, SELFPAY ==
[2025-04-01 12:42] VITALS: BP 106/70; PULSE 77; TEMP 36.5; O2SAT 98; BMI 23.5
--- NOTE | 2025-04-01 12:42 | MHC.OFFWIV ---
Intake Vital Signs 04/01/25 12:42 Height 5 ft 7.5 in Weight 152 lb BMI 23.5 BP 106/70 Blood Pressure Location Lt brachial Position Sitting Pulse 77 Pulse Source Pulse Oximeter Temp 97.7 F Temp Source Oral Pulse Oximetry (%) 98 Oxygen Delivery Method Room Air Intake Visit Reasons: EP Diarrhea for 2 weeks Intake Note: pt presents with diarrhea and bloating without stomach pains, denies blood in stools. s/s for 2 weeks while vacationing in [place], [place] Patient Tobacco Use Status: Never used Tobacco Allergies iodine Allergy (Unknown, Verified 04/01/25 12:48) unknown penicillin V Allergy (Unknown, Verified 04/01/25 12:48) cant breath soy Allergy (Unknown, Verified 04/01/25 12:48) scratchy throat eye swelling Sulfa (Sulfonamide Antibiotics) Allergy (Unknown, Verified 04/01/25 12:48) cant breath Do you need a note to return to daycare/school/sports/work: No HPI EP Diarrhea for 2 weeks HPI Details This is a 70 year old female patient who presents to the [place] clinic with report of diarrhea for the last 2 weeks. She states that two weeks ago, her family went on vacation to [place], [place]. She does not recall eating anything undercooked or suspicious/concerning, however the day she arrived on vacation, she started having diarrhea multiple times per day. This lasted throughout her week in [place]. When she returned home, she had about 3 days where stool was more formed and diarrhea seemed to be subsiding, however it then recurred and has been persistent over the last 4 days. She does not feel stool has an abnormal/strong odor. Denies any blood or mucus in the stool. Denies any fever/chills. Denies any abdominal pain or cramping. Denies urinary symptoms. She is waking up multiple times per night having diarrhea episodes. No family members had similar symptoms. [facility] Medical History Foot pain, right Vasovagal episode Hearing loss Panic attack Annual physical exam Urinary incontinence Surgical History H/O colonoscopy No pertinent past surgical history Family History Mother Hypertension Father Lung cancer Maternal Grandmother Colon cancer Social History Housing: House Alcohol intake: current Alcohol intake frequency: a few times a week Patient Tobacco Use Status: Never used Tobacco e-Cigarette/Vaping Use: Never Used service: No Current occupational status: retired Cognitive needs: No Hearing needs: No Vision needs: Yes Review of Systems Const All systems reviewed & are unremarkable except as noted in HPI and below Physical Exam Vital Signs: Last Vital Signs Temp 97.7 F 04/01/25 12:42 Pulse 77 04/01/25 12:42 BP 106/70 04/01/25 12:42 Pulse Ox 98 04/01/25 12:42 Oxygen Delivery Method Room Air 04/01/25 12:42 BMI result Body Mass Index 23.5 Const General: cooperative, healthy appearing, comfortable and no acute distress Limitations: no limitations Resp Effort & Inspection: normal respiratory effort Auscultation: clear to auscultation bilaterally Cardio Rate: regular rate Rhythm: regular rhythm GI Palpation (GI): Soft to palpation (nontender) and No hepatosplenomegaly present Percussion: Yes normal to percussion Auscultation: normal bowel sounds Skin General skin exam: no rashes or lesions noted Extrem General: Yes capillary refill normal and Yes no clubbing, cyanosis or edema Psych Appearance: grossly normal Mental Status: mental status grossly normal Speech and movement: Normal speech and movement present Assessment & Plan Assessment & Plan (1) Diarrhea: Code(s): R19.7 - Diarrhea, unspecified Qualifiers: Diarrhea type: presumed infectious Qualified Code(s): R19.7 - Diarrhea, unspecified Plan: GI panel/H pylori ordered. Supplies provided and patient instructed on collection. Will try Loperamide, which we reviewed use of. Abdominal assessment is normal. No fevers/tenderness. Will f/u with PCP as scheduled, or sooner at [place] as needed. Advised to go to the ED if she develops any fevers or abdominal pain. All questions were answered and patient verbalizes understanding and agrees to plan. Orders: Orders GI Panel Today R19.7 - Diarrhea, unspecified H pylori Ag Stool Today R19.7 - Diarrhea, unspecified Medications: New loperamide Take one capsule after each loose stool, every 6 hours as needed. 2 mg PO Q6H PRN 8 caps 0RF loose stool 2 days A08.4 - Viral intestinal infection, unspecified Coding Level of Care Code Est Pt Level 4 (73555) Diagnoses Diarrhea of presumed infectious origin R19.7 Diarrhea type: presumed infectious
--- OUTSIDE RECORDS SUMMARY | 2025-04-01 12:48 | XMS_ITS | Encounter Summary ---
Author Organization [facility] Address [address] [place] [address] Care Team Providers Care Lna Name Role Phone Unavailable Primary Care Provider Unavailabl e Encounter Details Date Type Department Care Team (Late st Contact Info) Description 10/07/2014 Scanned Document [facility] General Surgery [place] Nicole Mcclellan. [address] [place], [place] [address] External, Provider Social History Tobacco Use Types Packs/Day Years Used Date Smoking Tobacco: Never Alcohol Use Standard Drinks/Week Comments Yes 0 (1 standard drink = 0.6 oz pur e alcohol) Comments Unknown Sex and Gender Information Value Date Recorded Sex Assigned at Not on file Legal Sex Female 2:37 PM EST Gender Identity Not on file Sexual Orientation Not on file documented as of this encounter Plan of Treatment Not on file documented as of this encounter Procedures Procedure Name Priority Date/Time Associated Diagnosis Comments MAMMOGRAPHY RESULT SCAN Routine 09/06/2014 documented in this encounter Results * Mammography Result Scan (09/06/2014) Provider External IMG SCAN REPORTS Final Result documented in this encounter Visit Diagnoses Not on filedocumented in this encounter
--- OUTSIDE RECORDS SUMMARY | 2025-04-01 12:48 | XMS_ITS | Encounter Summary ---
Author Organization [facility] Address [address] [place] [address] Care Team Providers Care Lead Inspector Name Role Phone Unavailable Primary Care Provider Unavailabl e Reason for Referral * - Closed Specialty Diagnoses / Procedures Referred By Rossy armenta Referred To Contact Procedures Mammography Diagnostic Right Mayco Hogan . fax: Referral ID Status Reason Start Date Expiration Date Visits Re quested Visits Authorized [id number] Closed 10/14/2014 10/14/2015 1 1 Encounter Details Date Type Department Care Team (Late st Contact Info) Description 10/14/2014 Scanned Document [facility] General Surgery [place] Mcclellan. [address] [place] [id number] Mayco Hogan . Social History Tobacco Use Types Packs/Day Years [...] Procedure Name Priority Date/Time Associated Diagnosis Comments PATHOLOGY/CYTOLOGY SCAN Routine 10/14/2014 MAMMO DIAGNOSTIC RIGHT Routine 10/14/2014 documented in this encounter Results * Pathology/Cytology Scan (10/14/2014) Historical Provider PATHOLOGY/CYTOLOGY ORDERABLE S Final Result * Mammography Diagnostic Right (10/14/2014) Anatomical Region Laterality Modality Breast Right Mammography us Historical Provider IMG MAMMOGRAPHY ORDERABLES F inal Result documented in this encounter Visit Diagnoses Not on filedocumented in this encounter
--- OUTSIDE RECORDS SUMMARY | 2025-04-01 12:48 | XMS_ITS | Encounter Summary ---
Author Organization [facility] Address [address] [place] [address] Care Team Providers Care Honing Machine Operator Production Name Role Phone Unavailable Primary Care Provider Unavailabl e Encounter Details Date Type Department Care Team (Late st Contact Info) Description 10/13/2014 Scanned Document [facility] General Surgery [place] Nicole Mcclellan. [address] [place], [place] [address] Provider, [facility] . Social History Tobacco Use Types Packs/Day [...] Date/Time Associated Diagnosis Comments PATHOLOGY/CYTOLOGY SCAN Routine 10/13/2014 documented in this encounter Results * Pathology/Cytology Scan (10/13/2014) us Historical Provider PATHOLOGY/CYTOLOGY ORDERABLE S Final Result documented in this encounter Visit Diagnoses Not on filedocumented in this encounter
--- OUTSIDE RECORDS SUMMARY | 2025-04-01 12:48 | XMS_ITS | Clinical Summary ---
Author Organization [address] Address [address] [place] [phone] Care Team Providers Care Custom Garment Designer Name Role Phone Unavailable Primary Care Provider Unavailabl e Allergies Active Allergy Reactions Criticality Noted Date Comments Iodides 10/07/2014 Sulfa (Sulfonamide Antibiotics) 01/2015 Medications No known medications Active Problems No known active problems Family History Medical History Relation Name Comments Cancer Other Hypertension Other Relation Name Status Comments Other Social History Tobacco Use Types Packs/Day Years Used Date Smoking Tobacco: Never Alcohol Use Standard Drinks/Week Comments Yes 0 (1 standard drink = 0.6 oz pur e alcohol) Comments Unknown Sex and Gender Information Value Date Recorded Sex Assigned at Not on file Legal Sex Female 2:37 PM EST Gender Identity Not on file Sexual Orientation Not on file Last Filed Vital Signs Vital Sign Reading Time Taken Comments Blood Pressure - - Pulse - - Temperature - - Respiratory Rate - - Oxygen Saturation - - Inhaled Oxygen Concentration - - Weight 65.3 kg (144 lb) 10/07/2014 10:27 AM EST Height 171.5 cm (5' 7.5 ) 10/07/2014 10:27 AM ES T Body Mass Index 22.22 10/07/2014 10:27 AM EST Plan of Treatment Health Maintenance Due Date Last Done Comments HIV screening 01/25/1968 Hepatitis C screening 1973 Tetanus adult (Td q 10,TDAP once) 1975 Lipid disorder screening 1995 Colon cancer screening, Colonoscopy 01/25/2000 Diabetes screening 01/25/2000 Pneumococcal Vaccine (50+ years) (1 of 1 - PCV) 2005 Shingles vaccine (Shingrix) (1 of 2 - Shingrix (RZV) 2 Dose Standard Series) 2005 Breast cancer screening 10/14/2016 10/15/19 15, 09/06/2014 Osteoporosis screening (bone density) 01/25/2020 Covid-19 vaccine series ( - 2023- season) 2024 Influenza vaccine 04/04/2025 RSV Immunization (1 - 1-dose 75+ series) 2030 Cervical cancer screening Discontinued Meningococcal Vaccine Aged Out No calos sung eligible based on patient's age to complete this topic Procedures Procedure Name Priority Date/Time Associated Diagnosis Comments MAMMO DIAGNOSTIC RIGHT Routine 10/14/2014 from Last 3 Months or Most Recently Relevant to Health Maintenance Results * Mammography Diagnostic Right (10/14/2014) Anatomical Region Laterality Modality Breast Right Mammography [facility] Provider IMG MAMMOGRAPHY ORDERABLES F inal Result from Last 3 Months or Most Recently Relevant to Health Maintenance Insurance [employer]CIAL [employer]IC COMMERCIAL GENERIC COMMERCIAL GENERIC COMMERCIAL GENERIC
--- OUTSIDE RECORDS SUMMARY | 2025-04-01 12:48 | XMS_ITS | Encounter Summary ---
Author Organization [facility] Address [address] [place] [address] Care Team Providers Care Transfill Technician Name Role Phone Unavailable Primary Care Provider Unavailabl e Encounter Details Date Type Department Care Team (Late st Contact Info) Description 10/07/2014 Scanned Document [facility] General Surgery [place] Mary Mcclellan. [address] [place] [address] Ronald Kelly MD [address] [place] [address] Social History Tobacco Use Types Packs/Day Years [...] on file documented as of this encounter Visit Diagnoses Not on filedocumented in this encounter
== END 2025-04-01 13:52 | disposition home or self-care (01) ==
PROVIDERS: PCP Internal Medicine; Visit Provider Nurse Practitioner Family
DX: R19.7 Diarrhea, unspecified (principal)

== ENCOUNTER → 2025-04-01 11:55 | Outpatient (BNVA) | payer MEDICARE, OTHER, SELFPAY | PROVIDERS: PCP Internal Medicine; Visit Provider Nurse Practitioner Family | DX: R19.7 Diarrhea, unspecified (principal) | CPT/HCPCS: 99212 ==

== ENCOUNTER 2025-05-24 08:01 | Outpatient (REF) | payer MEDICARE, OTHER, SELFPAY ==
[2025-05-24 10:53] LABS: Hematocrit 39.7 % (37.0-47.0); Hemoglobin 13.3 g/dl (12.0-16.0); Imm Gran Abs Auto 0.00 X10*3/uL (0.00-0.03); Imm Gran Pct Auto 0.0 % (0.0-0.4); Lymphocytes Absolute Auto 1.8 X10*3/uL (1.2-4.9); MANUAL DIFF FLAG SCAN; Mean Corpuscular HGB Conc 33.5 g/dl (31.0-35.0); Mean Corpuscular Hemoglobin 31.4 pg (27.0-33.0); Mean Corpuscular Volume 93.9 fL (80.0-98.0); NRBC Abs Auto 0.000 X10*3/uL (0.0-0.012); NRBC Pct Auto 0.0 /100WBC (0.0-0.2); Platelet Count 325 X10*3/uL (160-400); Red Blood Count 4.23 X10*6/uL (4.20-5.50); SCAN SMEAR FLAG 1; White Blood Count 3.4 X10*3/uL (4.8-10.8)
[2025-05-24 12:14] LABS: Alanine Aminotransferase 20 U/L (0-31); Albumin Level 4.4 g/dL (3.5-5.0); Alkaline Phosphatase 69 U/L (39-117); Anion Gap 9 (12-20); Aspartate Amino Transferase 28 U/L (5-31); Blood Urea Nitrogen 13 mg/dL (9-16); Calcium 9.3 mg/dL (8.4-10.2); Carbon Dioxide 28 mmol/L (22-29); Chloride 105 mmol/L (96-108); Cholesterol 202 mg/dL (<200); Estimated Glomerular Filt Rate 59; HDL Cholesterol 69 mg/dL (>40); Potassium 4.4 mmol/L (3.3-5.1); Sodium 138 mmol/L (135-145); Total Protein 7.2 g/dL (6.5-8.0); Triglycerides 71 mg/dL (<150)
== END 2025-05-24 08:02 | disposition home or self-care (01) ==
LOC: HO.HMGCLDS 08:01
PROVIDERS: PCP Internal Medicine; Visit Provider Internal Medicine
DX: Z00.00 Encounter for general adult medical examination without abnormal findings (principal); E78.5 Hyperlipidemia, unspecified; E55.9 Vitamin D deficiency, unspecified; Z79.899 Other long term (current) drug therapy
CPT/HCPCS: 36415; 80053; 80061; 81001; 82306; 84443; 85025; 96127; 99397

== ENCOUNTER 2025-05-24 08:01 | Outpatient (AMB) | payer MEDICARE, OTHER, SELFPAY ==
--- OUTSIDE RECORDS SUMMARY | 2025-05-24 08:05 | XMS_ITS | Clinical Summary ---
Author Organization [address] Address [address] [place] [phone] Care Team Providers Care Fitness Instructor Name Role Phone Unavailable Primary Care Provider [...] 15, 09/06/2014 Osteoporosis screening (bone density) 01/25/2020 Influenza vaccine 03/04/2025 Covid-19 vaccine series ( - 2024- season) 2025 RSV Immunization (1 - 1-dose 75+ series) 2030 Cervical cancer screening Discontinued Meningococcal B Vaccine Aged Out No l onger eligible based on patient's age to complete this topic Meningococcal Vaccine Aged Out No calos sung eligible based on patient's age to complete this topic Procedures Procedure Name Priority Date/Time Associated Diagnosis Comments MAMMO DIAGNOSTIC RIGHT Routine 10/14/2014 from Last 3 Months or Most Recently Relevant to Health Maintenance Results * Mammography Diagnostic Right (10/14/2014) Anatomical Region Laterality Modality Breast Right Mammography [facility] [place] Provider IM MAMMOGRAPHY ORDERABLES F inal Result from Last 3 Months or Most Recently Relevant to Health Maintenance Insurance [employer]CIAL [employer]IC COMMERCIAL GENERIC COMMERCIAL GENERIC COMMERCIAL GENERIC
--- OUTSIDE RECORDS SUMMARY | 2025-05-24 08:05 | XMS_ITS | Encounter Summary ---
Author Organization [facility] Address [address] [place] [address] Care Team Providers Care Blade Worker Name Role Phone Unavailable Primary Care Provider Unavailabl e Reason for Referral * - Closed Specialty Diagnoses / Procedures Referred By Rossy armenta Referred To Contact Procedures Mammography Diagnostic Right Mayco Hogan . fax: Referral ID Status Reason Start Date Expiration Date Visits Re quested Visits Authorized [id number] Closed 10/14/2014 10/14/2015 1 1 Encounter Details Date Type Department Care Team (Late st Contact Info) Description 10/14/2014 Scanned Document [facility] General Surgery [facility]. [address] [place] [phone] Mayco Hogan . Social History Tobacco Use [...]
--- OUTSIDE RECORDS SUMMARY | 2025-05-24 08:05 | XMS_ITS | Encounter Summary ---
Author Organization [facility] Address [address] [place] [address] Care Team Providers Care Crime Lab Technician Name Role Phone Unavailable Primary Care Provider Unavailabl e Encounter Details Date Type Department Care Team (Late st Contact Info) Description 10/13/2014 Scanned Document [place] [place] [address] Provider, [facility] . Social History Tobacco Use Types Packs/Day [...]
--- OUTSIDE RECORDS SUMMARY | 2025-05-24 08:05 | XMS_ITS | Encounter Summary ---
Author Organization [facility] Address [address] [place] [address] Care Team Providers Care Sales Solutions Representative Name Role Phone Unavailable Primary Care Provider Unavailabl e Encounter Details Date Type Department Care Team (Late st Contact Info) Description 10/07/2014 Scanned Document [facility] General Surgery [facility]. [address] [facility] [address] [place] [address] Ronald Kelly MD [address] [facility] [place] [address] Social History Tobacco Use Types [...]
--- OUTSIDE RECORDS SUMMARY | 2025-05-24 08:05 | XMS_ITS | Encounter Summary ---
Author Organization [facility] and [facility] Address [address] [place] [address] Care Team Providers Care Director Internal Audit Name Role Phone Unavailable Primary Care Provider Unavailabl e Encounter Details Date Type Department Care Team (Late st Contact Info) Description 10/07/2014 Scanned Document [place] [address] External, Provider Social History Tobacco Use Types [...]
--- NOTE | 2025-05-24 08:10 | A.OFFPC_ITS ---
Vital Signs 05/24/25 08:11 Height 5 ft 7.8 in Weight 153 lb BMI 23.4 BP 126/74 Blood Pressure Location Lt brachial Position Sitting Respiration 17 Pulse 73 Pulse Source Pulse Oximeter Temp 97.6 F Temp Source Oral Pulse Oximetry (%) 99 Oxygen Delivery Method Room Air Intake Visit Reasons: Annual visit Intake Note: Pt is here today for PE and pap. Allergies iodine Allergy (Unknown, Verified 05/24/25 08:17) unknown penicillin V Allergy (Unknown, Verified 05/24/25 08:17) cant breath soy Allergy (Unknown, Verified 05/24/25 08:17) scratchy throat eye swelling Sulfa (Sulfonamide Antibiotics) Allergy (Unknown, Verified 05/24/25 08:17) cant breath Medication List - Last Reconciled 05/24/25 by Yessy Mas MD albuterol sulfate 90 mcg/actuation (ProAir HFA) 2 puffs inhalation Q6H PRN cholecalciferol (vitamin D3) 50 mcg PO DAILY triamcinolone acetonide 0.025% 1 appl topical DAILY Tobacco use date assessed: 05/24/25 Fall risk assessment: No Falls in past year Last assessed Fall Risk: 05/24/25 Dental Screening Dental Screen Date: 05/24/25 Did you have a dental visit in the last 12 months?: Yes Did you have a dental problem in the last 6 months where you did not have access to dental care?: No Was dental information given to patient?: Patient has dentist HPI Annual visit HPI Details Pt presents for PE. PFSH Medical History (Updated 05/24/25 @ 08:44 by Yessy Mas MD) FHx: colon cancer Hx of screening mammography Normal pelvic exam Foot pain, right Vasovagal episode Hearing loss Panic attack Annual physical exam Urinary incontinence Surgical History H/O colonoscopy No pertinent past surgical history Family History Mother Hypertension Father Lung cancer Maternal Grandmother Colon cancer Sister Hypertension Social History (Updated 05/24/25 @ 08:35 by Yessy Mas MD) Household Members Other:: exercise 5 x a week, aqua, walks daily, yoga Housing: House Alcohol intake: current Alcohol intake frequency: a few times a week Patient Tobacco Use Status: Never used Tobacco e-Cigarette/Vaping Use: Never Used service: No Current occupational status: retired Cognitive needs: No Hearing needs: No Vision needs: Yes Questionnaire PHQ-9 Over the last 2 weeks, how often have you been bothered by any of the following problems? 1. Little interest or pleasure in doing things: not at all 2. Feeling down, depressed, or hopeless: not at all 3. Trouble falling or staying asleep, or sleeping too much: several days 4. Feeling tired or having little energy: not at all 5. Poor appetite or overeating: not at all 6. Feeling bad about yourself - or that you are a failure or have let yourself or your family down: not at all 7. Trouble concentrating on things, such as reading the newspaper or watching television: not at all 8. Moving or speaking so slowly that other people could have noticed. Or the opposite - being so fidgety or restless that you have been moving around a lot more than usual: not at all 9. Thoughts that you would be better off or of hurting yourself in some way: not at all Total score: 1 Depression Screening Interpretation: Negative Depression Screening Done: Yes 46914 - PHQ-9 Billing: Yes Source: Developed by Drs. Beto Urrutia, Aiyana Quiroz, Donnie Echeverria and colleagues, with an educational liborio from [employer]. Thrive Questionnaire Date Thrive assessed: 05/24/25 I am a: Patient What is your living situation today?: I have a steady place to live Within the past 12 months, did the food you bought not last and you didn't have the money to get more?: Never true Within the past 12 months, did you worry whether your food would run out before you got money to buy more?: Never true Do you have trouble paying for medicines?: No Do you have trouble getting transportation to medical appointments?: No Do you have trouble paying your heating and electricity bill?: No Do you have trouble taking care of your child, family member or friend?: No Do you have trouble with day-to-day activities such as bathing, preparing meals, shopping, managing finances, etc.?: No Are you interested in more education?: No Please select the resources that you would like help with: None Currently or been in a relationship where the following occur: No concerns reported THRIVE Score: 0 AUDIT C Alcohol Use Questionnaire (AUDIT-C) 1. How often do you have a drink containing alcohol?: Monthly or less 2. How many drinks containing alcohol do you have on a typical day when you are drinking?: 1 or 2 3. How often do you have six or more drinks on one occasion?: Never Total Score: 1 PRIYANKA-7 AMB Questionnaire PRIYANKA-7 Date PRIYANKA - 7 assessed: 05/24/25 Feeling nervous, anxious, or on edge: 1 = Several days Not being able to stop or control worryin = Not at all Worrying too much about different things: 0 = Not at all Trouble relaxin = Not at all Being so restless that it is hard to sit still: 0 = Not at all Becoming easily annoyed or irritable: 1 = Several days Feeling afraid as if something awful might happen: 0 = Not at all Total PRIYANKA-7 score (0-4 normal; 5-9 mild; 10-14 moderate; 15-21 severe): 2 Source: Developed by Drs. Beto Urrutia, Aiyana Quiroz, Donnie Echeverria and colleagues, with an educational liborio from [employer]. PRIYANKA-7 Assessment Billing PRIYANKA-7 Assessment Tool: PRIYANKA-7 Assessment 36809 Review of Systems Const All systems reviewed & are unremarkable except as noted in HPI and below ENT Reports no additional complaints Card Reports no additional complaints Resp Reports no additional complaints GI Reports no additional complaints Reports no additional complaints Physical exam (Primary Care) Vital Signs: Last Vital Signs Temp 97.6 F 05/24/25 08:11 Pulse 73 05/24/25 08:11 Resp 17 05/24/25 08:11 BP 126/74 05/24/25 08:11 Pulse Ox 99 05/24/25 08:11 Oxygen Delivery Method Room Air 05/24/25 08:11 BMI result Body Mass Index 23.4 Tobacco/Smoking Status: Tobacco use Status Tobacco use date assessed 05/24/25 05/24/25 08:22 Patient Tobacco Use Status Never used Tobacco 05/24/25 08:35 e-Cigarette/Vaping Use Never Used 05/24/25 08:35 PHQ-9: PHQ-9 Score PHQ-9: Total score 1 05/24/25 10:01 Depression Screening Interpretation: Negative Thrive Assessment: Date of Thrive Assessment Date Thrive assessed 05/24/25 05/24/25 08:24 Currently or been in a relationship where the following occur: No concerns reported Const General: no acute distress HENMT Head: Yes normal to inspection Ears: TM's normal bilaterally Face and sinus: Yes normal facial exam Mouth: Normal oral and palatal mucosa present Eyes General: appearance normal, both eyes and all related structures Pupils: Equal, round and reactive pupils present Neck Neck: Yes no lymphadenopathy and Yes supple Resp Effort & Inspection: normal respiratory effort Auscultation: clear to auscultation bilaterally Cardio Rhythm: regular rhythm Heart sounds: S1 normal heart sound present and S2 normal heart sound present GI Inspection: Yes normal to inspection Palpation (GI): Soft to palpation Percussion: Yes normal to percussion Auscultation: normal bowel sounds Neuro Cranial nerves: Yes Equal, round and reactive pupils present Coding Level of Care Code Est Pt Prev Care >65y(82037) Diagnoses Vitamin D deficiency E55.9 Hyperlipidemia E78.5 Annual physical exam Z00.00 Additional Codes PRIYANKA-7 Assessment Billing - PRIYANKA-7 Assessment Tool: PRIYANKA-7 Assessment 32956 ([id number]) PHQ-9 - 31326 - PHQ-9 Billing: Yes ([id number]) Assessment & Plan Assessment & Plan (1) Vitamin D deficiency: Code(s): E55.9 - Vitamin D deficiency, unspecified Category: Medical Plan: Continue vitamin supplement (2) Hyperlipidemia: Code(s): E78.5 - Hyperlipidemia, unspecified Category: Medical Plan: Low-cholesterol diet discussed with the patient (3) Annual physical exam: Code(s): Z00.00 - Encounter for general adult medical examination without abnormal findings Category: Medical Plan: Well-balanced diet regular physical activity discussed with the patient. She is up-to-date with the mammogram and colonoscopy. Patient will has a fasting blood work today Orders: Orders Comprehensive Carefree. Panel Fast Today E55.9 - Vitamin D deficiency, unspecified, E78.5 - Hyperlipidemia, unspecified UA w Microscopic Today E55.9 - Vitamin D deficiency, unspecified, E78.5 - Hyperlipidemia, unspecified Vitamin D 25-OH Total Today E55.9 - Vitamin D deficiency, unspecified, E78.5 - Hyperlipidemia, unspecified Complete Blood Count Auto Diff Today E55.9 - Vitamin D deficiency, unspecified, E78.5 - Hyperlipidemia, unspecified Lipid Panel Today E55.9 - Vitamin D deficiency, unspecified, E78.5 - Hyperlipidemia, unspecified TSH reflex Free T4 Today E55.9 - Vitamin D deficiency, unspecified, E78.5 - Hyperlipidemia, unspecified
[2025-05-24 08:11] VITALS: BP 126/74; PULSE 73; RESP 17; TEMP 36.4; O2SAT 99; BMI 23.4
== END 2025-05-24 09:27 | disposition home or self-care (01) ==
LOC: HO.HMCC 08:02
PROVIDERS: PCP Internal Medicine; Visit Provider Internal Medicine
DX: Z00.00 Encounter for general adult medical examination without abnormal findings (principal); E55.9 Vitamin D deficiency, unspecified; E78.5 Hyperlipidemia, unspecified

== ENCOUNTER 2025-05-24 09:10 | Outpatient (REF) | payer MEDICARE, OTHER, SELFPAY ==
[2025-05-24 11:58] LABS: Appearance Urine Clear; Glucose Urine UA Negative (Negative); PH 6.5 (5.0-9.0); Specific Gravity - Urine 1.020 (1.005-1.025)
== END 2025-05-24 09:11 | disposition home or self-care (01) ==
LOC: HO.LAB 09:10
PROVIDERS: Visit Provider Internal Medicine
DX: Z13.89 Encounter for screening for other disorder (principal)
CPT/HCPCS: 81001

== ENCOUNTER 2025-07-06 08:07 | Outpatient (REF) | payer MEDICARE, OTHER, SELFPAY | END 2025-07-06 08:08 | disposition home or self-care (01) | LOC: HO.LNP 08:07 | PROVIDERS: PCP Internal Medicine; Visit Provider Physician Assistant Medical | DX: R82.90 Unspecified abnormal findings in urine (principal); Z13.89 Encounter for screening for other disorder | CPT/HCPCS: 81003; 87086; 99212 ==

== ENCOUNTER 2025-07-06 08:07 | Outpatient (AMB) | payer MEDICARE, OTHER, SELFPAY ==
--- OUTSIDE RECORDS SUMMARY | 2025-07-06 08:10 | XMS_ITS | Encounter Summary ---
Author Organization [facility] and Home Health Address [address] [place] [address] Care Team Providers Care Brand Marketing Coordinator Name Role Phone Unavailable Primary Care Provider Unavailabl e Encounter Details Date Type Department Care Team (Late st Contact Info) Description 10/13/2014 Scanned Document [place] [address] Provider, [facility] . Social History Tobacco Use Types [...]
--- OUTSIDE RECORDS SUMMARY | 2025-07-06 08:10 | XMS_ITS | Encounter Summary ---
Author Organization [facility] Address [address] [place] [address] Care Team Providers Care Bus Starter Name Role Phone Unavailable Primary Care Provider Unavailabl e Reason for Referral * - Closed Specialty Diagnoses / Procedures Referred By Rossy armenta Referred To Contact Procedures Mammography Diagnostic Right Mayco Hogan . fax: Referral ID Status Reason Start Date Expiration Date Visits Re quested Visits Authorized [id number] Closed 10/14/2014 10/14/2015 1 1 Encounter Details Date Type Department Care Team (Late st Contact Info) Description 10/14/2014 Scanned Document [facility] General Surgery [facility]. [address] [place] [address] [id number] Mayco Hogan . Social History Tobacco Use [...]
--- OUTSIDE RECORDS SUMMARY | 2025-07-06 08:11 | XMS_ITS | Encounter Summary ---
Author Organization [facility] and [facility] Address [address] [place] [address] Care Team Providers Care Commercial Escrow Assistant Name Role Phone Unavailable Primary Care Provider Unavailabl e Encounter Details Date Type Department Care Team (Late st Contact Info) Description 10/07/2014 Scanned Document [facility] [address] External, Provider Social History Tobacco Use Types [...]
--- OUTSIDE RECORDS SUMMARY | 2025-07-06 08:11 | XMS_ITS | Encounter Summary ---
Author Organization [facility] and [facility] Health Address [address] [place] [address] Care Team Providers Care Pharmacy Resident Name Role Phone Unavailable Primary Care Provider Unavailabl e Encounter Details Date Type Department Care Team (Late st Contact Info) Description 10/07/2014 Scanned Document [facility] General Surgery [facility]. [address] [facility] [address] [place] [address] Ronald Kelly MD [address] [facility] [place] [address] Social History Tobacco Use Types [...]
--- OUTSIDE RECORDS SUMMARY | 2025-07-06 08:11 | XMS_ITS | Clinical Summary ---
Author Organization [address] Address [address] [place] [id number] Care Team Providers Care Dental Office Manager Name Role Phone Unavailable Primary Care Provider [...] Anatomical Region Laterality Modality Breast Right Mammography [facility] Provider IM MAMMOGRAPHY ORDERABLES F inal Result from Last 3 Months or Most Recently Relevant to Health Maintenance Insurance COMMERCIAL GENERIC COMMERCIAL GENERIC COMMERCIAL GENERIC COMMERCIAL GENERIC
[2025-07-06 08:13] VITALS: BP 128/78; PULSE 84; TEMP 36.4; O2SAT 98; BMI 23.9
--- NOTE | 2025-07-06 08:13 | AM.OFFWIN_ITS ---
Intake Vital Signs 07/06/25 08:13 Height 5 ft 7.8 in Weight 156 lb BMI 23.9 BP 128/78 Blood Pressure Location Lt brachial Position Sitting Pulse 84 Pulse Source Pulse Oximeter Temp 97.5 F Temp Source Oral Pulse Oximetry (%) 98 Oxygen Delivery Method Room Air Intake Visit Reasons: EP blood in urine Intake Note: Patient presents c/o blood & dark colored urine, back pain x3 days. Patient Tobacco Use Status: Never used Tobacco Allergies iodine Allergy (Unknown, Verified 07/06/25 08:21) unknown penicillin V Allergy (Unknown, Verified 07/06/25 08:21) cant breath soy Allergy (Unknown, Verified 07/06/25 08:21) scratchy throat eye swelling Sulfa (Sulfonamide Antibiotics) Allergy (Unknown, Verified 07/06/25 08:21) cant breath Do you need a note to return to daycare/school/sports/work: No HPI HPI Comments History of Present Illness Details History - The patient is a 70 year old individua l presenting with concerns about discolored urine over the last couple of days, described as orange, brown, and pink. - Associated symptoms include increased urinary frequency, intermittent foul- smelling urine, and lower back pain. - The patient denies any burning with ur ination, fever, chills, or vaginal discharge. - The patient has a history of urinary i ncontinence. - The patient notes recent consumption o f beets and asparagus but states the current urine odor is different from the usual smell after eating asparagus. - The patient affirms being a regular wa ter drinker. - She denies fever, chills, CP, SOB, abd pain, n/v/d, vaginal discharge or bleeding. - She has no dysuria. - She has no history of stones. Physical Exam General: Cooperative, healthy appearing, comfortable and no acute distress Orientation/consciousness: Patient oriented x3 Limitations: No limitations Respiratory: Clear to auscultation bilaterally. Normal respiratory effort, able to speak in complete sentences. No respiratory distress, not tachypneic, no tripod positioning and no use of accessory muscles. Cardiovascular: Regular rate and rhythm. Normal S1 and S2. No m/r/g noted. GI: Soft, non-tender, non-distended. Hypoactive BS noted. No TTP of the abdomen. No guarding noted. No rebound tenderness noted. Negative CVA tenderness. Skin: No rashes or lesions noted Patient was informed and verbally consented to the use of an ambient scribe for clinic note documentation during this visit [facility] Medical History (Updated 05/24/25 @ 08:44 by Yessy Mas MD) FHx: colon cancer Hx of screening mammography Normal pelvic exam Foot pain, right Vasovagal episode Hearing loss Panic attack Annual physical exam Urinary incontinence Surgical History H/O colonoscopy No pertinent past surgical history Family History Mother Hypertension Father Lung cancer Maternal Grandmother Colon cancer Sister Hypertension Social History (Updated 05/24/25 @ 08:35 by Yessy Mas MD) Household Members Other:: exercise 5 x a week, aqua, walks daily, yoga Housing: House Alcohol intake: current Alcohol intake frequency: a few times a week Patient Tobacco Use Status: Never used Tobacco e-Cigarette/Vaping Use: Never Used service: No Current occupational status: retired Cognitive needs: No Hearing needs: No Vision needs: Yes Review of Systems Const All systems reviewed & are unremarkable except as noted in HPI and below Physical Exam Vital Signs: Last Vital Signs Temp 97.5 F 07/06/25 08:13 Pulse 84 07/06/25 08:13 BP 128/78 07/06/25 08:13 Pulse Ox 98 07/06/25 08:13 Oxygen Delivery Method Room Air 07/06/25 08:13 BMI result Body Mass Index 23.9 Results AMB Urinalysis, Automated UA Leukoctes 0 Sanchez/uL Last Edit by Marlee Chase CMA on 07/06/25 09:12 UA Nitrite Negative Last Edit by Marlee Chase CMA on 07/06/25 09:12 UA Urobilinogen 0.2 mg/dL Last Edit by Marlee Chase CMA on 07/06/25 09: 12 UA Protein 0 mg/dL Last Edit by Marlee Chase CMA on 07/06/25 09:12 UA pH 6.0 Last Edit by Marlee Chase CMA on 07/06/25 09:12 UA Blood 10 Quinn/uL Last Edit by Marlee Chase CMA on 07/06/25 09:12 UA Specific Matteson 1.020 Last Edit by Marlee Chase, JOSESITO on 07/06/25 09 :12 UA Ketone Negative Last Edit by Marlee Chase, JOSESITO on 07/06/25 09:12 UA Bilirubin 0 mg/dL Last Edit by Marlee Chase, JOSESITO on 07/06/25 09:12 UA Glucose 0 mg/dL Last Edit by Marlee Chase, JOSESITO on 07/06/25 09:12 Assessment & Plan Assessment & Plan (1) Abnormal urine odor: Code(s): R82.90 - Unspecified abnormal findings in urine Plan Most likely UTI vs stone vs food related UA in the office +blood plan - Possible etiologies include urinary tract infection or pigmenturia from recent beet consumption. - A urine sample will be collected for analysis to further evaluate the cause of these symptoms. - will send urine culture and hold off on antibiotics until the culture comes back - will call with the results and treat - follow up with PCP - Advised ER if she has a fever, chills, back pain, blood in urine Orders: Orders AMB Urinalysis Automated Today Z13.9 - Encounter for screening, unspecified Coding Level of Care Code Est Pt Level 3 (20971) Diagnoses Abnormal urine odor R82.90
== END 2025-07-06 09:58 | disposition home or self-care (01) ==
PROVIDERS: PCP Internal Medicine; Visit Provider Physician Assistant Medical
DX: R82.90 Unspecified abnormal findings in urine (principal); Z13.9 Encounter for screening, unspecified